=== PATIENT | male | born 1995 | race Caucasian/White ===

== ENCOUNTER 2023-08-05 09:47 | Outpatient (AMB) | payer OTHER, SELFPAY ==
--- NOTE | 2023-08-05 09:34 | MHC.PC.OV ---
Vital Signs 08/05/23 09:55 Height 5 ft 5.55 in Weight 166 lb 5 oz BMI 27.2 BP 120/70 Blood Pressure Location Rt brachial Position Sitting Respiration 16 Pulse 64 Pulse Source Pulse Oximeter Pulse Oximetry (%) 99 Oxygen Delivery Method Room Air Intake Visit Reasons: Annual PT Intake Note: New patient visit Allergies No Known Allergies Allergy (Verified 08/05/23 09:52) Medication List - Last Reconciled 08/05/23 by Taryn Umaña MD No Known Home Meds Tobacco use date assessed: 08/05/23 Dental Screening Dental Screen Date: 08/05/23 Did you have a dental visit in the last 12 months?: Yes Did you have a dental problem in the last 6 months where you did not have access to dental care?: No Was dental information given to patient?: Patient has dentist HPI HPI Comments History of Present Illness Details This is a 28 year old male with past medical history of attention deficit presenting to establish care/physical exam Concerns today 1. Attention deficit. Remotely treated with ?ritalin with good effect. Having trouble compeltely tasks both at work and home 2. right upper back, scapular pain. 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 Worsens pain 3. Always tired. Snores, witnesses him frequently stopping breathing during the night ROS see HPI PHYSICAL EXAM: GENERAL: Alert and oriented x 3. NAD EYES: EOMI. Anicteric. HENT: Moist mucous membranes. Narrow oropharynx. No scleral icterus. No cervical lymphadenopathy. LUNGS: Clear to auscultation bilaterally. CARDIOVASCULAR: Regular rate and rhythm. No murmur. No JVD. ABDOMEN: Soft, non-tender +bs EXTREMITIES: No edema. Non-tender. SKIN: No rashes or lesions. Warm. : Normal penis, testes. No hernias palpable NEUROLOGIC: No focal neurological deficits. CN II-XII grossly intact PSYCHIATRIC: Cooperative. 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 How often do you have a drink containing alcohol?: Monthly or less 2. How many drinks containing alcohol do you have on a typical day when you are drinking?: 3 or 4 3. How often do you have six or more drinks on one occasion?: Less than monthly Total Score: 3 Physical exam (Primary Care) Vital Signs: Last Vital Signs Pulse 64 08/05/23 09:55 Resp 16 08/05/23 09:55 BP 120/70 08/05/23 09:55 Pulse Ox 99 08/05/23 09:55 Oxygen Delivery Method Room Air 08/05/23 09:55 BMI result Body Mass Index 27.2 Tobacco/Smoking Status: Tobacco use Status Tobacco use date assessed 08/05/23 08/05/23 09:34 Patient Tobacco Use Status Former Tobacco user 08/05/23 09:58 Tobacco use type Cigarette 08/05/23 09:58 e-Cigarette/Vaping Use Never Used 08/05/23 09:58 Assessment and Plan Assessment & Plan (1) Physical exam: Code(s): Z00.00 - Encounter for general adult medical examination without abnormal findings Plan: Preventive measures discussed. Labs ordered (2) Neuritis: Code(s): M79.2 - Neuralgia and neuritis, unspecified (3) Thoracic back pain: Code(s): M54.6 - Pain in thoracic spine Qualifiers: Back pain laterality: right Chronicity: chronic Qualified Code(s): M54.6 - Pain in thoracic spine; G89.29 - Other chronic pain Plan: xr ordered (4) Apneic episode: Code(s): R06.81 - Apnea, not elsewhere classified Plan: referral to sleep medicine Orders: Orders RT home sleep study 08/05/23 Lipid Panel 08/05/23 Z13.0 - Encounter for screening for diseases of the blood and blood-forming organs and certain disorders involving the immune mechanism, Z13.220 - Encounter for screening for lipoid disorders, Z13.228 - Encounter for screening for other metabolic disorders Complete Blood Count Auto Diff 08/05/23 Z13.0 - Encounter for screening for diseases of the blood and blood-forming organs and certain disorders involving the immune mechanism, Z13.220 - Encounter for screening for lipoid disorders, Z13.228 - Encounter for screening for other metabolic disorders TSH reflex Free T4 08/05/23 Z13.0 - Encounter for screening for diseases of the blood and blood-forming organs and certain disorders involving the immune mechanism, Z13.220 - Encounter for screening for lipoid disorders, Z13.228 - Encounter for screening for other metabolic disorders XR thoracic spine 2V 08/05/23 M54.6 - Pain in thoracic spine, M79.2 - Neuralgia and neuritis, unspecified Comprehensive Met. Panel 08/05/23 Z13.0 - Encounter for screening for diseases of the blood and blood-forming organs and certain disorders involving the immune mechanism, Z13.220 - Encounter for screening for lipoid disorders, Z13.228 - Encounter for screening for other metabolic disorders Referrals Sleep Medicine Referral R06.81 - Apnea, not elsewhere classified, R06.83 - Snoring Medications: New prednisone 40 mg (2 x 20 mg) PO DAILY 10 tabs 0RF 5 days diclofenac sodium 1% (Arthritis Pain (diclofenac)) 4 grams topical QID PRN 100 grams 1RF scapular pain dextroamphetamine-amphetamine 10 mg (Adderall) administer doses at least 4-6 hours apart; Partial Fill upon patient request. 10 mg PO BID 60 tabs 0RF 30 days dextroamphetamine-amphetamine 10 mg (Adderall) administer doses at least 4-6 hours apart; Partial Fill upon patient request. 10 mg PO BID 30 days 60 tabs 0RF Coding Level of Care Code New Pt Prev Care 18-39yr([id number] Diagnoses Physical exam Z00.00 Neuritis M79.2 Chronic right-sided thoracic back pain M54.6; G89.29 Back pain laterality: right Chronicity: chronic Apneic episode R06.81 Comment add modifier 25
[2023-08-05 09:55] VITALS: BP 120/70; PULSE 64; RESP 16; O2SAT 99; BMI 27.2
== END 2023-08-05 14:24 | disposition home or self-care (01) ==
PROVIDERS: PCP Internal Medicine; Visit Provider Internal Medicine
DX: Z00.00 Encounter for general adult medical examination without abnormal findings (principal); M79.2 Neuralgia and neuritis, unspecified; M54.6 Pain in thoracic spine; G89.29 Other chronic pain; R06.81 Apnea, not elsewhere classified
CPT/HCPCS: 99385

== ENCOUNTER 2023-08-05 13:34 | Outpatient (REF) | payer OTHER, SELFPAY ==
[2023-08-05 18:11] LABS: MANUAL DIFF FLAG NO
[2023-08-05 18:46] LABS: Alanine Aminotransferase 19 U/L (0-40); Albumin Level 4.6 g/dL (3.5-5.0); Alkaline Phosphatase 84 U/L (39-117); Anion Gap 14 (12-20); Aspartate Amino Transferase 19 U/L (5-37); Bilirubin Total 0.7 mg/dL (0.0-1.0); Blood Urea Nitrogen 15 mg/dL (9-16); Carbon Dioxide 26 mmol/L (22-29); Chloride 106 mmol/L (96-108); Cholesterol 182 mg/dL (<200); Estimated Glomerular Filt Rate > 60; Glucose Random 102 mg/dL (60-115); HDL Cholesterol 43 mg/dL (>40); LDL Cholesterol Calculated 118 mg/dL (<100); Potassium 3.8 mmol/L (3.3-5.1); Sodium 142 mmol/L (135-145); Total Protein 7.3 g/dL (6.5-8.0); Triglycerides 107 mg/dL (<150)
[2023-08-05 18:48] LABS: Basophils Percent Auto 0.6 % (0-2); Eosinophils Absolute Auto 0.1 X10*3/uL (0.0-0.4); Eosinophils Percent Auto 1.1 % (0-4); Hematocrit 42.5 % (42.0-52.0); Hemoglobin 14.8 g/dl (14.0-18.0); Imm Gran Abs Auto 0.02 X10*3/uL (0.00-0.03); Imm Gran Pct Auto 0.4 % (0.0-0.4); Lymphocytes Absolute Auto 2.2 X10*3/uL (1.2-4.9); Lymphocytes Percent Auto 41.3 % (20-40); Mean Corpuscular HGB Conc 34.8 g/dl (31.0-36.0); Mean Corpuscular Hemoglobin 30.6 pg (27.0-33.0); Mean Corpuscular Volume 87.8 fL (80.0-98.0); Mean Platelet Volume 11.9 fL (9.4-12.4); Monocytes Absolute Auto 0.4 X10*3/uL (0.1-1.2); Monocytes Percent Auto 7.1 % (2-11); Neutrophils Absolute Auto 2.6 x10*3/uL (2.0-8.3); Neutrophils Percent Auto 49.5 % (45-73); Platelet Count 150 X10*3/uL (160-400); Red Blood Count 4.84 X10*6/uL (4.60-5.80); Red Cell Distribution Width 12.2 % (11.0-16.0); White Blood Count 5.2 X10*3/uL (4.8-10.8)
[2023-08-05 19:02] LABS: TSH reflex Free T4 1.56 uIU/mL (0.32-4.0)
== END 2023-08-05 13:35 | disposition home or self-care (01) ==
LOC: HO.WFDLDS 13:34
PROVIDERS: Visit Provider Internal Medicine
DX: Z13.220 Encounter for screening for lipoid disorders (principal); Z13.0 Encounter for screening for diseases of the blood and blood-forming organs and certain disorders involving the immune mechanism; Z13.228 Encounter for screening for other metabolic disorders
CPT/HCPCS: 36415; 80053; 80061; 84443; 85025

== ENCOUNTER 2023-09-24 09:49 | Outpatient (REF) | payer OTHER, SELFPAY ==
--- NOTE | ~2023-09-24 | XR_ITS ---
EXAMINATION: XR THORACIC SPINE CLINICAL INFORMATION: Pain in thoracic spine. COMPARISON: None available. TECHNIQUE: 2 views of the thoracic spine. FINDINGS: Minimal leftward curvature of the mid to lower thoracic spine. Thoracic vertebral body heights are preserved. Vertical striations in thoracic vertebral bodies raise the possibility of demineralization, and correlation with clinical exam recommended. XR/XR thoracic spine 2V IMPRESSION: Vertical striations in thoracic vertebral bodies raise the possibility of demineralization, and correlation with clinical exam recommended. Electronically signed by: Ayesha Metcalf MD 10/21/2023 10:35 AM EDT
== END 2023-09-24 09:50 | disposition home or self-care (01) ==
LOC: HO.HMGCX 09:49
PROVIDERS: PCP Internal Medicine; Visit Provider Internal Medicine
DX: M54.6 Pain in thoracic spine (principal); M79.2 Neuralgia and neuritis, unspecified
CPT/HCPCS: 72070

== ENCOUNTER 2023-10-07 13:56 | Outpatient (AMB) | payer OTHER, SELFPAY ==
--- NOTE | 2023-10-07 14:12 | MHC.PC.OV ---
Vital Signs 10/07/23 14:23 Height 5 ft 5.5 in Weight 189 lb 6 oz BMI 31.0 BP 108/84 Blood Pressure Location Lt brachial Position Sitting Respiration 16 Pulse 81 Pulse Source Pulse Oximeter Pulse Oximetry (%) 98 Oxygen Delivery Method Room Air Intake Visit Reasons: Feet pain Intake Note: Bilateral foot pain Incident Response Consultant Required: No Allergies No Known Allergies Allergy (Verified 10/07/23 14:22) Tobacco use date assessed: 08/05/23 Dental Screening Dental Screen Date: 08/05/23 HPI HPI Comments History of Present Illness Details This is a 28 year old male with past medical history of attention deficit presenting for foot pain, hand pain Concerns previously 1. Attention deficit. Remotely treated with ?ritalin with good effect. Having trouble compeltely tasks both at work and home-Adderall has been quite helpful. 2. right upper back, scapular pain. 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 Worsens pain. --Still experiences. Had xray which has not been read by radiology 3. Always tired. Snores, witnesses him frequently stopping breathing during the night--sleep test is pending Has been having bilateral heel pain for the past year but has worsened over the past year-working longer hours and has wood floors at home. pain is at the distal heel into the midfoot. Hurts worst the first thing in the morning and at the end of the work day (wears steel toe boots) Has been having severe intermittent flares of right thumb pain. At the base. Is not red or visibly swollen at the time. Will occur for a few days then recede For the past month has had headache-bilateral headache, pressure. Wakes up with, persists at moderate level throughout the day. Has history of migraines which were generally midline. These new headache dont increase with light. ROS see HPI PHYSICAL EXAM: GENERAL: Alert and oriented x 3. NAD EYES: EOMI. Anicteric. HENT: Moist mucous membranes. Narrow oropharynx. No scleral icterus. No cervical lymphadenopathy. LUNGS: Clear to auscultation bilaterally. CARDIOVASCULAR: Regular rate and rhythm. No murmur. No JVD. ABDOMEN: Soft, non-tender +bs EXTREMITIES: No edema. Non-tender. SKIN: No rashes or lesions. Warm. NEUROLOGIC: No focal neurological deficits. CN II-XII grossly intact PSYCHIATRIC: Cooperative. Appropriate mood and affect 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 1. Little interest or pleasure in doing things: several days 2. Feeling down, depressed, or hopeless: several days 3. Trouble falling or staying asleep, or sleeping too much: more than half the days 4. Feeling tired or having little energy: nearly every day 5. Poor appetite or overeating: several days 6. Feeling bad about yourself - or that you are a failure or have let yourself or your family down: not at all 7. Trouble concentrating on things, such as reading the newspaper or watching television: more than half the days 8. Moving or speaking so slowly that other people could have noticed. Or the opposite - being so fidgety or restless that you have been moving around a lot more than usual: more than half the days 9. Thoughts that you would be better off or of hurting yourself in some way: not at all Total score: 12 Depression Screening Interpretation: Positive Depression Screening Follow-up: Existing condition and Declines treatment Depression Screening Done: Yes 30521 - PHQ-9 Billing: Yes Source: Developed by Drs. Saw Waters, Alejandra Funez, Jonathan Lopez and colleagues, with an educational raquel from [employer]. Thrive Questionnaire Date Thrive assessed: 10/07/23 I am a: Patient What is your living situation today?: I have a steady place to live Within the past 12 months, did the food you bought not last and you didn't have the money to get more?: Never true Within the past 12 months, did you worry whether your food would run out before you got money to buy more?: Never true Do you have trouble paying for medicines?: No Do you have trouble getting transportation to medical appointments?: No Do you have trouble paying your heating and electricity bill?: No Do you have trouble taking care of your child, family member or friend?: No Do you have trouble with day-to-day activities such as bathing, preparing meals, shopping, managing finances, etc.?: No Are you currently unemployed and looking for a job?: No Are you interested in more education?: Yes Please select the resources that you would like help with: Education Currently or been in a relationship where the following occur: No concerns reported THRIVE Score: 0 SANTO-7 AMB Questionnaire SANTO-7 Date SANTO - 7 assessed: 10/07/23 Feeling nervous, anxious, or on edge: 2 = More than half the days Not being able to stop or control worryin = More than half the days Worrying too much about different things: 1 = Several days Trouble relaxin = More than half the days Being so restless that it is hard to sit still: 2 = More than half the days Becoming easily annoyed or irritable: 1 = Several days Feeling afraid as if something awful might happen: 0 = Not at all Total SANTO-7 score (0-4 normal; 5-9 mild; 10-14 moderate; 15-21 severe): 10 Source: Developed by Drs. Saw Waters, Alejandra Funez, Jonathan Lopez and colleagues, with an educational raquel from [employer]. SANTO-7 Assessment Billing SANTO-7 Assessment Tool: SANTO-7 Assessment 49764 Physical exam (Primary Care) Vital Signs: Last Vital Signs Pulse 81 10/07/23 14:23 Resp 16 10/07/23 14:23 BP 108/84 10/07/23 14:23 Pulse Ox 98 10/07/23 14:23 Oxygen Delivery Method Room Air 10/07/23 14:23 BMI result Body Mass Index 31.0 Tobacco/Smoking Status: Tobacco use Status Tobacco use date assessed 08/05/23 10/07/23 14:18 Patient Tobacco Use Status Former Tobacco user 10/07/23 14:18 Tobacco use type Cigarette 10/07/23 14:18 e-Cigarette/Vaping Use Never Used 10/07/23 14:18 PHQ-9: PHQ-9 Score PHQ-9: Total score 12 10/09/23 10:23 Depression Screening Interpretation: Positive Depression Screening Follow-up: Existing condition and Declines treatment Thrive Assessment: Date of Thrive Assessment Date Thrive assessed 10/07/23 10/07/23 15:21 Currently or been in a relationship where the following occur: No concerns reported Assessment and Plan Assessment & Plan (1) Headache: Code(s): R51.9 - Headache, unspecified Qualifiers: Headache type: new daily persistent Qualified Code(s): G44.52 - New daily persistent headache (NDPH) Plan: MRI ordered (2) Polyarthralgia: Code(s): M25.50 - Pain in unspecified joint Plan: Labs, xrays ordered. Mobic sent. Orders: Orders Erythrocyte Sedimentation Rate 10/07/23 M25.50 - Pain in unspecified joint, R51.9 - Headache, unspecified Rheumatoid Factor 10/07/23 M25.50 - Pain in unspecified joint, R51.9 - Headache, unspecified Uric Acid 10/07/23 M79.646 - Pain in unspecified finger(s) XR foot LT 2V 10/07/23 M79.672 - Pain in left foot XR foot RT 2V 10/07/23 M79.671 - Pain in right foot, M79.672 - Pain in left foot XR hand RT min 3V 10/07/23 M25.50 - Pain in unspecified joint, M79.644 - Pain in right finger(s) Complete Blood Count Auto Diff 10/07/23 M25.50 - Pain in unspecified joint, R51.9 - Headache, unspecified Lyme IgG/IgM w/reflex to WB 10/07/23 M25.50 - Pain in unspecified joint, R51.9 - Headache, unspecified MR head/brain wo con 10/07/23 M25.50 - Pain in unspecified joint, R51.9 - Headache, unspecified Cyclic Citrullinated Peptide 10/07/23 M25.50 - Pain in unspecified joint, R51.9 - Headache, unspecified Referrals Podiatry Referral M79.671 - Pain in right foot, M79.672 - Pain in left foot Medications: New meloxicam 15 mg PO DAILY 90 tabs 3RF Coding Level of Care Code Est Pt Level 4 (49778) Complex EM visit Add On G2211 Diagnoses New daily persistent headache G44.52 Headache type: new daily persistent Polyarthralgia M25.50 Additional Codes SANTO-7 Assessment Billing - SANTO-7 Assessment Tool: SANTO-7 Assessment 79320 ([id number])
[2023-10-07 14:23] VITALS: BP 108/84; PULSE 81; RESP 16; O2SAT 98; BMI 31.0
== END 2023-10-07 15:05 | disposition home or self-care (01) ==
PROVIDERS: PCP Internal Medicine; Visit Provider Internal Medicine
DX: G44.52 New daily persistent headache (NDPH) (principal); M25.50 Pain in unspecified joint
CPT/HCPCS: 99214; G2211

== ENCOUNTER 2023-10-07 15:08 | Outpatient (REF) | payer OTHER, SELFPAY ==
[2023-10-07 17:39] LABS: MANUAL DIFF FLAG NO
[2023-10-07 18:13] LABS: Basophils Percent Auto 0.5 % (0-2); Eosinophils Absolute Auto 0.1 X10*3/uL (0.0-0.4); Eosinophils Percent Auto 1.1 % (0-4); Hematocrit 47.5 % (42.0-52.0); Hemoglobin 16.3 g/dl (14.0-18.0); Imm Gran Abs Auto 0.04 X10*3/uL (0.00-0.03); Imm Gran Pct Auto 0.5 % (0.0-0.4); Lymphocytes Absolute Auto 2.4 X10*3/uL (1.2-4.9); Lymphocytes Percent Auto 30.4 % (20-40); Mean Corpuscular HGB Conc 34.3 g/dl (31.0-36.0); Mean Corpuscular Volume 87.3 fL (80.0-98.0); Mean Platelet Volume 12.3 fL (9.4-12.4); Monocytes Absolute Auto 0.5 X10*3/uL (0.1-1.2); Monocytes Percent Auto 6.6 % (2-11); Neutrophils Absolute Auto 4.8 x10*3/uL (2.0-8.3); Neutrophils Percent Auto 60.9 % (45-73); Platelet Count 107 X10*3/uL (160-400); Red Blood Count 5.44 X10*6/uL (4.60-5.80); Red Cell Distribution Width 12.2 % (11.0-16.0); White Blood Count 7.9 X10*3/uL (4.8-10.8)
[2023-10-07 18:29] LABS: Rheumatoid Factor < 13.0 IU/mL (<15.0)
[2023-10-07 19:08] LABS: Erythrocyte Sedimentation Rate 4 MM/HR (0-15)
[2023-10-09 12:34] LABS: Lyme Abs Screen <0.90 index
[2023-10-10 14:54] LABS: Cyclic Citrullinated Peptide <16 UNITS
== END 2023-10-07 15:09 | disposition home or self-care (01) ==
LOC: HO.WFDLDS 15:08
PROVIDERS: Visit Provider Internal Medicine
DX: M25.50 Pain in unspecified joint (principal); R51.9 Headache, unspecified; M79.646 Pain in unspecified finger(s)
CPT/HCPCS: 36415; 84550; 85025; 85652; 86200; 86431; 86617; 86618

== ENCOUNTER 2023-10-24 11:19 | Outpatient (REF) | payer OTHER, SELFPAY ==
--- NOTE | ~2023-10-24 | XR_ITS ---
EXAMINATION: XR HAND, RIGHT CLINICAL INFORMATION: Pain in the right fingers. COMPARISON: None available. TECHNIQUE: PA, lateral, and oblique views of the right hand. FINDINGS: The bones and soft tissues are normal. No fracture. Alignment is anatomic. Joint spaces are maintained. No erosions or soft tissue calcifications. XR/XR hand RT min 3V IMPRESSION: Normal right hand. Electronically signed by: Kiran Martinez MD 10/30/2023 08:19 PM EDT RP
--- NOTE | ~2023-10-24 | XR_ITS ---
EXAMINATION: Bilateral foot series CLINICAL INFORMATION: Pain in the right and left feet COMPARISON: None. TECHNIQUE: 3 views of each foot FINDINGS: Right foot: The bones joints and soft tissues are normal. No fracture or arthrosis. Left foot: There is a small well-corticated ossific fragment dorsal to the talonavicular joint compatible with an ossicle. The bones and soft tissues are otherwise unremarkable. No fracture or degenerative change. XR/XR foot LT min 3V IMPRESSION: RIGHT FOOT: Normal. LEFT FOOT: Normal. Electronically signed by: Kiran Martinez MD 10/30/2023 08:17 PM EDT
--- NOTE | ~2023-10-24 | XR_ITS ---
EXAMINATION: Bilateral foot series CLINICAL INFORMATION: Pain in the right and left feet COMPARISON: None. TECHNIQUE: 3 views of each foot FINDINGS: Right foot: The bones joints and soft tissues are normal. No fracture or arthrosis. Left foot: There is a small well-corticated ossific fragment dorsal to the talonavicular joint compatible with an ossicle. The bones and soft tissues are otherwise unremarkable. No fracture or degenerative change. XR/XR foot RT min 3V IMPRESSION: RIGHT FOOT: Normal. LEFT FOOT: Normal. Electronically signed by: Kiran Martinez MD 10/30/2023 08:17 PM EDT
== END 2023-10-24 11:20 | disposition home or self-care (01) ==
LOC: HO.HMGCX 11:19
PROVIDERS: PCP Internal Medicine; Visit Provider Internal Medicine
DX: M79.672 Pain in left foot (principal); M79.671 Pain in right foot; M79.644 Pain in right finger(s)
CPT/HCPCS: 73130; 73630

== ENCOUNTER → 2023-10-28 09:47 | Outpatient (REF) | payer OTHER, SELFPAY | LOC: HO.SL 09:47 | PROVIDERS: PCP Internal Medicine; Visit Provider Internal Medicine | DX: R06.83 Snoring (principal); R06.81 Apnea, not elsewhere classified; R53.83 Other fatigue | CPT/HCPCS: 95806 ==

== ENCOUNTER → 2023-10-28 10:09 | Outpatient (BNV) | payer OTHER, SELFPAY | PROVIDERS: PCP Internal Medicine; Visit Provider Psychiatry & Neurology Neurology | DX: R06.83 Snoring (principal) | CPT/HCPCS: 95806 ==

== ENCOUNTER 2023-10-31 13:49 | Outpatient (AMB) | payer OTHER, SELFPAY ==
[2023-10-31 13:58] VITALS: BP 116/60; PULSE 66; RESP 12; O2SAT 98
--- NOTE | 2023-10-31 13:58 | MHC.PC.OV ---
Vital Signs 10/31/23 13:58 Height 5 ft 5.5 in BP 116/60 Blood Pressure Location Lt brachial Position Sitting Respiration 12 Pulse 66 Pulse Source Pulse Oximeter Pulse Oximetry (%) 98 Oxygen Delivery Method Room Air Intake Visit Reasons: Blood test Intake Note: Patient is here today to review labs. Patient reports he has no concerns at this time. 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 Concerns previously 1. Attention deficit. Remotely treated with ?ritalin with good effect. Having trouble compeltely tasks both at work and home-Adderall has been quite helpful. 2. right upper back, scapular pain. 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 Worsens pain. --Still experiences. Had xray which has not been read by radiology 3. Always tired. Snores, witnesses him frequently stopping breathing during the night--sleep test is pending Has been having bilateral heel pain for the past year but has worsened over the past year-working longer hours and has wood floors at home. pain is at the distal heel into the midfoot. Hurts worst the first thing in the morning and at the end of the work day (wears steel toe boots)-xray was normal Has been having severe intermittent flares of right thumb pain. At the base. Is not red or visibly swollen at the time. Will occur for a few days then recede-xray of the hand was normal For the past month has had headache-bilateral headache, pressure. Wakes up with, persists at moderate level throughout the day. Has history of migraines which were generally midline. These new headache dont increase with light. He has MRI ordered ROS see HPI PHYSICAL EXAM: GENERAL: Alert and oriented x 3. NAD EYES: EOMI. Anicteric. HENT: Moist mucous membranes. Narrow oropharynx. No scleral icterus. No cervical lymphadenopathy. LUNGS: Clear to auscultation bilaterally. CARDIOVASCULAR: Regular rate and rhythm. No murmur. No JVD. ABDOMEN: Soft, non-tender +bs EXTREMITIES: No edema. Non-tender. SKIN: No rashes or lesions. Warm. NEUROLOGIC: No focal neurological deficits. CN II-XII grossly intact PSYCHIATRIC: Cooperative. 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 1. Little interest or pleasure in doing things: not at all 2. Feeling down, depressed, or hopeless: several days 3. Trouble falling or staying asleep, or sleeping too much: more than half the days 4. Feeling tired or having little energy: nearly every day 5. Poor appetite or overeating: not at all 6. Feeling bad about yourself - or that you are a failure or have let yourself or your family down: several days 7. Trouble concentrating on things, such as reading the newspaper or watching television: not at all 8. Moving or speaking so slowly that other people could have noticed. Or the opposite - being so fidgety or restless that you have been moving around a lot more than usual: not at all 9. Thoughts that you would be better off or of hurting yourself in some way: not at all Total score: 7 Depression Screening Interpretation: Positive Depression Screening Follow-up: New Medication prescribed Depression Screening Done: Yes 82802 - PHQ-9 Billing: Yes Source: Developed by Drs. Saw Waters, Alejandra Funez, Jonathan Lopez and colleagues, with an educational raquel from [employer]. Thrive Questionnaire Date Thrive assessed: 10/29/23 I am a: Patient What is your living situation today?: I have a steady place to live Within the past 12 months, did the food you bought not last and you didn't have the money to get more?: Never true Within the past 12 months, did you worry whether your food would run out before you got money to buy more?: Never true Do you have trouble paying for medicines?: No Do you have trouble getting transportation to medical appointments?: No Do you have trouble paying your heating and electricity bill?: No Do you have trouble taking care of your child, family member or friend?: No Do you have trouble with day-to-day activities such as bathing, preparing meals, shopping, managing finances, etc.?: No Are you currently unemployed and looking for a job?: No Are you interested in more education?: No Please select the resources that you would like help with: None Currently or been in a relationship where the following occur: No concerns reported THRIVE Score: 0 AUDIT C Alcohol Use Questionnaire (AUDIT-C) 1. How often do you have a drink containing alcohol?: Monthly or less 2. How many drinks containing alcohol do you have on a typical day when you are drinking?: 3 or 4 3. How often do you have six or more drinks on one occasion?: Less than monthly Total Score: 3 SANTO-7 AMB Questionnaire SANTO-7 Date SANTO - 7 assessed: 10/31/23 Feeling nervous, anxious, or on edge: 1 = Several days Not being able to stop or control worryin = Several days Worrying too much about different things: 1 = Several days Trouble relaxin = Not at all Being so restless that it is hard to sit still: 0 = Not at all Becoming easily annoyed or irritable: 0 = Not at all Feeling afraid as if something awful might happen: 0 = Not at all Total SANTO-7 score (0-4 normal; 5-9 mild; 10-14 moderate; 15-21 severe): 3 Source: Developed by Drs. Saw Waters, Alejandra Funez, Jonathan Lopez and colleagues, with an educational raquel from [employer]. SATNO-7 Assessment Billing SANTO-7 Assessment Tool: SANTO-7 Assessment 51648 Physical exam (Primary Care) Vital Signs: Last Vital Signs Pulse 66 10/31/23 13:58 Resp 12 10/31/23 13:58 BP 116/60 09/20/24 13:58 Pulse Ox 98 10/31/23 13:58 Oxygen Delivery Method Room Air 10/31/23 13:58 Tobacco/Smoking Status: Tobacco use Status Tobacco use date assessed 08/05/23 10/31/23 14:04 Patient Tobacco Use Status Former Tobacco user 10/31/23 14:04 Tobacco use type Cigarette 10/31/23 14:04 e-Cigarette/Vaping Use Never Used 10/31/23 14:04 PHQ-9: PHQ-9 Score PHQ-9: Total score 7 11/09/23 12:04 Depression Screening Interpretation: Positive Depression Screening Follow-up: New Medication prescribed Thrive Assessment: Date of Thrive Assessment Date Thrive assessed 10/29/23 10/31/23 14:04 Currently or been in a relationship where the following occur: No concerns reported Assessment and Plan Assessment & Plan (1) Polyarthralgia: Code(s): M25.50 - Pain in unspecified joint Plan: Labs ordered Consider rheumatology referral Discussed possible fibromyalgia -willing to try duloxetine (2) Attention deficit: Code(s): R41.840 - Attention and concentration deficit Plan: Continue adderall, increase dose Orders: Orders Platelet Count (Citrate) 10/31/23 D69.6 - Thrombocytopenia, unspecified, R79.89 - Other specified abnormal findings of blood chemistry Pathologist Review - CBC 10/31/23 D69.6 - Thrombocytopenia, unspecified, R79.89 - Other specified abnormal findings of blood chemistry Cyclic Citrullinated Peptide 10/31/23 D69.6 - Thrombocytopenia, unspecified Complete Blood Count Auto Diff 10/31/23 D69.6 - Thrombocytopenia, unspecified, R79.89 - Other specified abnormal findings of blood chemistry Medications: New duloxetine 60 mg PO DAILY 90 caps 3RF duloxetine 30 mg PO DAILY 7 caps 0RF dextroamphetamine-amphetamine 20 mg (Adderall) administer doses at least 4-6 hours apart; Partial Fill upon patient request. 20 mg PO BID 120 tabs 0RF 60 days R41.840 - Attention and concentration deficit Discontinued dextroamphetamine-amphetamine 10 mg administer doses at least 4-6 hours apart; Partial Fill upon patient request. Discontinued Reason: Doctor's Order 10 mg PO BID 30 days 60 tabs 0RF Coding Level of Care Code Est Pt Level 4 (75715) Diagnoses Polyarthralgia M25.50 Attention deficit R41.840 Additional Codes SANTO-7 Assessment Billing - SANTO-7 Assessment Tool: SANTO-7 Assessment 70302 ([id number])
== END 2023-10-31 14:42 | disposition home or self-care (01) ==
PROVIDERS: PCP Internal Medicine; Visit Provider Internal Medicine
DX: M25.50 Pain in unspecified joint (principal); R41.840 Attention and concentration deficit

== ENCOUNTER → 2023-10-31 13:49 | Outpatient (BNVA) | payer OTHER, SELFPAY | PROVIDERS: PCP Internal Medicine; Visit Provider Internal Medicine | DX: M25.50 Pain in unspecified joint (principal); R41.840 Attention and concentration deficit | CPT/HCPCS: 96127; 99212 ==

== ENCOUNTER 2023-12-02 08:51 | Outpatient (AMB) | payer OTHER, SELFPAY ==
--- NOTE | 2023-12-02 09:06 | A.OFFPC_ITS ---
Vital Signs 12/02/23 09:09 Height 5 ft 5.5 in Weight 192 lb 6 oz BMI 31.5 BP 108/64 Blood Pressure Location Rt brachial Pulse 99 Pulse Source Pulse Oximeter Pulse Oximetry (%) 96 Oxygen Delivery Method Room Air Intake Visit Reasons: MRI follow up Intake Note: Follow up. Missed MRI appt and needs to r/s Allergies No Known Allergies Allergy (Verified 12/02/23 09:08) Tobacco use date assessed: 08/05/23 Dental Screening Dental Screen Date: 08/05/23 HPI HPI Comments History of Present Illness Details This is a 28 year old male with past medical history of attention deficit presenting for follow up Recently had sleep testing at home. Was negative but still having witnessed apnea. Says the oximeter was off his finger when he woke up. Does have sleep consult Concerns previously 1. Attention deficit. Remotely treated w ith ?ritalin with good effect. Having trouble compeltely tasks both at work and home-Adderall has been quite helpful. 2. right upper back, scapular pain. 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 Worsens pain. --Still experiences. Using prn mobic 3. Always tired. Snores, witnesses him frequently stopping breathing during the night--sleep referral pending Has been having bilateral heel pain for the past year but has worsened over the past year-working longer hours and has wood floors at home. pain is at the distal heel into the midfoot. Hurts worst the first thing in the morning and at the end of the work day (wears steel toe boots)-xray was normal. referral placed to podiatry Has been having severe intermittent flares of right thumb pain. At the base. Is not red or visibly swollen at the time. Will occur for a few days then recede- xray of the hand was normal. declines rheumatology at present For the past month has had headache-bilateral headache, pressure. Wakes up with, persists at moderate level throughout the day. Has history of migraines which were generally midline. These new headache dont increase with light. He had MRI scheduled but missed it. Is calling back to schedule Having difficulty with sustaining strong erections. Decreased libido than previously ROS see HPI PHYSICAL EXAM: GENERAL: Alert and oriented x 3. NAD EYES: EOMI. Anicteric. HENT: Moist mucous membranes. Narrow oropharynx. No scleral icterus. No cervical lymphadenopathy. LUNGS: Clear to auscultation bilaterally. CARDIOVASCULAR: Regular rate and rhythm. No murmur. No JVD. ABDOMEN: Soft, non-tender +bs EXTREMITIES: No edema. Non-tender. SKIN: No rashes or lesions. Warm. NEUROLOGIC: No focal neurological deficits. CN II-XII grossly intact PSYCHIATRIC: Cooperative. 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) Vision needs: No Questionnaire Thrive Questionnaire Date Thrive assessed: 10/29/23 I am a: Patient What is your living situation today?: I have a steady place to live Within the past 12 months, did the food you bought not last and you didn't have the money to get more?: Never true Within the past 12 months, did you worry whether your food would run out before you got money to buy more?: Never true Do you have trouble paying for medicines?: No Do you have trouble getting transportation to medical appointments?: No Do you have trouble paying your heating and electricity bill?: No Do you have trouble taking care of your child, family member or friend?: No Do you have trouble with day-to-day activities such as bathing, preparing meals, shopping, managing finances, etc.?: No Are you currently unemployed and looking for a job?: No Are you interested in more education?: No Please select the resources that you would like help with: None Currently or been in a relationship where the following occur: No concerns reported THRIVE Score: 0 SANTO-7 AMB Questionnaire SANTO-7 Date SANTO - 7 assessed: 10/31/23 Source: Developed by Drs. aSw Waters, Alejandra Funez, Jonathan Lopez and colleagues, with an educational raquel from [employer]. Physical exam (Primary Care) Vital Signs: Last Vital Signs Pulse 99 12/02/23 09:09 BP 108/64 12/02/23 09:09 Pulse Ox 96 12/02/23 09:09 Oxygen Delivery Method Room Air 12/02/23 09:09 BMI result Body Mass Index 31.5 Tobacco/Smoking Status: Tobacco use Status Tobacco use date assessed 08/05/23 12/02/23 09:07 Patient Tobacco Use Status Former Tobacco user 12/02/23 09:07 Tobacco use type Cigarette 12/02/23 09:07 e-Cigarette/Vaping Use Never Used 12/02/23 09:07 Thrive Assessment: Date of Thrive Assessment Date Thrive assessed 10/29/23 12/02/23 09:07 Currently or been in a relationship where the following occur: No concerns rep orted Coding Level of Care Code Est Pt Level 4 (23945) Diagnoses Other fatigue R53.83 Fatigue type: other Erectile dysfunction, unspecified erectile dysfunction type N52.9 Erectile dysfunction type: unspecified Assessment & Plan Assessment & Plan (1) Fatigue: Code(s): R53.83 - Other fatigue Category: Medical Qualifiers: Fatigue type: other Qualified Code(s): R53.83 - Other fatigue Plan: Not sleeping well, waking up frequently in lab sleep testing ordered. see neuro/sleep as planned Trial trazodone (2) Erectile dysfunction: Code(s): N52.9 - Male erectile dysfunction, unspecified Category: Medical Qualifiers: Erectile dysfunction type: unspecified Qualified Code(s): N52.9 - Male erectile dysfunction, unspecified Plan: Trial viagra Check testosterone level Orders: Orders Testosterone, Free/Total Today N52.9 - Male erectile dysfunction, unspecified RT PSG in-lab sleep study Today R06.81 - Apnea, not elsewhere classified, R53.83 - Other fatigue Medications: New trazodone 50 - 100 mg (1 - 2 x 50 mg) PO BEDTIME PRN 90 tabs 3RF sleep sildenafil (Viagra) administer 30 minutes to 4 hours before activity 100 mg PO DAILY PRN 60 tabs 3RF sexual activity Discontinued duloxetine Discontinued Reason: Doctor's Order 60 mg PO DAILY 90 caps 3RF duloxetine Discontinued Reason: Doctor's Order 30 mg PO DAILY 7 caps 0RF
[2023-12-02 09:09] VITALS: BP 108/64; PULSE 99; O2SAT 96; BMI 31.5
== END 2023-12-02 09:39 | disposition home or self-care (01) ==
PROVIDERS: PCP Internal Medicine; Visit Provider Internal Medicine
DX: R53.83 Other fatigue (principal); N52.9 Male erectile dysfunction, unspecified

== ENCOUNTER → 2023-12-02 08:51 | Outpatient (BNVA) | payer OTHER, SELFPAY | PROVIDERS: PCP Internal Medicine; Visit Provider Internal Medicine | DX: R53.83 Other fatigue (principal); N52.9 Male erectile dysfunction, unspecified; R06.81 Apnea, not elsewhere classified | CPT/HCPCS: 99212 ==

== ENCOUNTER 2023-12-02 09:56 | Outpatient (REF) | payer OTHER, SELFPAY ==
[2023-12-02 11:19] LABS: MANUAL DIFF FLAG NO
[2023-12-02 12:18] LABS: Basophils Percent Auto 0.5 % (0-2); Eosinophils Absolute Auto 0.2 X10*3/uL (0.0-0.4); Eosinophils Percent Auto 2.4 % (0-4); Imm Gran Abs Auto 0.03 X10*3/uL (0.00-0.03); Imm Gran Pct Auto 0.5 % (0.0-0.4); Lymphocytes Absolute Auto 2.2 X10*3/uL (1.2-4.9); Lymphocytes Percent Auto 34.6 % (20-40); Mean Corpuscular HGB Conc 34.9 g/dl (31.0-36.0); Mean Corpuscular Hemoglobin 30.1 pg (27.0-33.0); Mean Corpuscular Volume 86.2 fL (80.0-98.0); Mean Platelet Volume 11.9 fL (9.4-12.4); Monocytes Absolute Auto 0.5 X10*3/uL (0.1-1.2); Monocytes Percent Auto 7.8 % (2-11); Neutrophils Absolute Auto 3.4 x10*3/uL (2.0-8.3); Neutrophils Percent Auto 54.2 % (45-73); Red Blood Count 4.99 X10*6/uL (4.60-5.80); Red Cell Distribution Width 12.3 % (11.0-16.0); White Blood Count 6.3 X10*3/uL (4.8-10.8)
[2023-12-02 12:19] LABS: Platelet Count 219 X10*3/uL (160-400)
[2023-12-02 12:20] LABS: Platelet Count (Citrate) 182 X10*3/uL (150-310)
[2023-12-04 20:24] LABS: Cyclic Citrullinated Peptide <16 UNITS
[2023-12-06 15:04] LABS: Testosterone, Total 329 ng/dL (250-1100)
== END 2023-12-02 09:57 | disposition home or self-care (01) ==
LOC: HO.WFDLDS 09:56
PROVIDERS: Visit Provider Internal Medicine
DX: R79.89 Other specified abnormal findings of blood chemistry (principal); D69.6 Thrombocytopenia, unspecified; N52.9 Male erectile dysfunction, unspecified
CPT/HCPCS: 84402; 84403; 85025; 86200